=== PATIENT | female | born 1990 | race Two or more races ===

== ENCOUNTER 2020-05-08 01:22 | Outpatient (CLI) | payer OTHER ==
[2020-05-08] MEDS ORDERED: PRENATAL TABLE1 EAC1 PO (01:49)
[2020-05-08] MEDS ORDERED: VITAMIN C100 MG PO (01:49)
== END 2020-05-08 10:01 | disposition home or self-care (01) ==
LOC: OBS/DEL 01:22
PROVIDERS: ATTEND Obstetrics & Gynecology
DX: O26.892 Other specified pregnancy related conditions, second trimester (principal); R10.31 Right lower quadrant pain

== ENCOUNTER 2020-05-22 08:40 | Outpatient (CLI) | payer OTHER ==
[~2020-05-22 08:40] MED LIST: PRENATAL TABLE1 EAC1 PO; VITAMIN C100 MG PO
== END 2020-05-22 10:23 | disposition home or self-care (01) ==
LOC: NST 08:40
PROVIDERS: ATTEND Obstetrics & Gynecology
DX: Z34.82 Encounter for supervision of other normal pregnancy, second trimester (principal)

== ENCOUNTER 2020-07-17 07:45 | Outpatient (CLI) | payer OTHER | END 2020-07-17 08:04 | disposition home or self-care (01) | LOC: NST 07:45 | PROVIDERS: ATTEND Obstetrics & Gynecology Maternal & Fetal Medicine | DX: Z34.83 Encounter for supervision of other normal pregnancy, third trimester (principal) ==